=== PATIENT | male | born 1995 | race Two or more races ===

== ENCOUNTER 2016-11-14 19:17 | Emergency (ER) | payer OTHER ==
[~2016-11-14] VITALS: Ht 170.2 cm; Wt 77.7 kg
[2016-11-14] MEDS ORDERED: TAMSULOSIN 0.4 MG CAP.ER.24H PO ONE (19:30)
[2016-11-14] MEDS ORDERED: ONDANSETRON 2MG/ML, 2ML IVPush ONE (19:30)
[2016-11-14] MEDS ORDERED: KETOROLAC 30 MG/1 ML IVPush ONE (19:30)
[2016-11-14] MEDS ORDERED: SODIUM CHLORIDE FLUSH 10ML SYR IVF ONE (19:30)
[2016-11-14] MEDS ORDERED: SODIUM CHLORIDE 0.9% 1,000ML IV ONE (19:30)
[2016-11-14] MEDS ORDERED: PLEASE ENTER ALLERGIES MC SCH ×2 (19:58)
[2016-11-14] MEDS ORDERED: TAMSULOSIN 0.4 MG CAP.ER.24H ONE (20:02)
[2016-11-14] MEDS ORDERED: KETOROLAC 30 MG/1 ML ONE (20:02)
[2016-11-14] MEDS ORDERED: ONDANSETRON 2MG/ML, 2ML ONE (20:03)
[2016-11-14 20:05] LABS: ASPARTATE AMINO TRANSFERASE 16 U/L (15-37); BLOOD UREA NITROGEN 16 mg/dL (7-18)
[2016-11-14 21:19] VITALS: BP 107/55
== END 2016-11-14 21:26 | disposition home or self-care (01) ==
LOC: ED 21:20
DX: N30.00 Acute cystitis without hematuria (principal); R10.32 Left lower quadrant pain
CPT/HCPCS: 36415; 74176; 80053; 81001; 83690; 85025; 87086; 99285

== ENCOUNTER 2016-11-16 14:57 | Emergency (ER) | payer OTHER ==
[~2016-11-16] VITALS: Ht 167.6 cm; Wt 76.1 kg
[2016-11-16] MEDS ORDERED: MORPHINE SULFATE 4 MG/ML, 1ML IVPush PRN (15:30)
[2016-11-16] MEDS ORDERED: ONDANSETRON 2MG/ML, 2ML IVPush ONE (15:30)
[2016-11-16] MEDS ORDERED: SODIUM CHLORIDE 0.9% 1,000ML IVBOLUS ONE ×2 (15:30→19:00)
[2016-11-16 16:15] LABS: ASPARTATE AMINO TRANSFERASE 15 U/L (15-37); BLOOD UREA NITROGEN 15 mg/dL (7-18)
[2016-11-16 17:22] LABS: PATH.CAST-FLAG NOT PRESENT; SPERM-FLAG NOT PRESENT; SRC-FLAG NOT PRESENT; XTAL-FLAG NOT PRESENT; YLC-FLAG NOT PRESENT
[2016-11-16] MEDS ORDERED: OMNIPAQUE 350 MG/ML, 100ML BOTTLE ONE (19:00)
[2016-11-16] MEDS ORDERED: SODIUM CHLORIDE FLUSH 10ML SYR IVF ONE (19:00)
[2016-11-16 19:50] VITALS: BP 132/57
[2016-11-16] MEDS ORDERED: CEFTRIAXONE 500 MG in DEXTROSE 5% 50 ML IV ONE (20:00)
== END 2016-11-16 20:43 | disposition home or self-care (01) ==
LOC: ED 17:14
DX: R10.30 Lower abdominal pain, unspecified (principal); R30.0 Dysuria; F12.10 Cannabis abuse, uncomplicated
CPT/HCPCS: 36415; 74177; 76870; 80053; 81001; 85025; 87086; 96361; 96374; 99285; J0696; J7030; Q9967